=== PATIENT | female | born 1985 | race Caucasian/White ===

== ENCOUNTER 2019-10-03 11:23 | Inpatient (IN) | payer OTHER ==
[~2019-10-03] VITALS: Ht 165.1 cm; Wt 76.2 kg
[2019-10-22] MEDS ORDERED: PRENATAL + DHA1 EAC1 PO (07:46)
== END 2019-10-24 12:27 | disposition home or self-care (01) | DRG 807 ==
LOC: SURG-SUITE 10-22 06:41 → LDR 10-22 06:41 → SURG-SUITE 10-22 17:08 → LDR 10-24 12:45
PROVIDERS: ADMIT Obstetrics & Gynecology; ATTEND Obstetrics & Gynecology
PROC: 10E0XZZ Delivery of Products of Conception, External Approach (ICD-10-PCS; principal; 2019-10-22)
PROC: 3E033VJ Introduction of Other Hormone into Peripheral Vein, Percutaneous Approach (ICD-10-PCS; 2019-10-22)
PROC: 4A1HXCZ Monitoring of Products of Conception, Cardiac Rate, External Approach (ICD-10-PCS; 2019-10-22)
DX: O80 Encounter for full-term uncomplicated delivery (principal); Z37.0 Single live birth; Z3A.39 39 weeks gestation of pregnancy; Z20.828 Contact with and (suspected) exposure to other viral communicable diseases

== ENCOUNTER 2019-10-17 12:06 | Outpatient (CLI) | payer OTHER | END 2019-10-17 13:36 | disposition home or self-care (01) | LOC: NST 12:06 | PROVIDERS: ATTEND Obstetrics & Gynecology Maternal & Fetal Medicine | DX: Z34.83 Encounter for supervision of other normal pregnancy, third trimester (principal) ==